=== PATIENT | male | born 1945 | race Caucasian/White ===

== ENCOUNTER 2017-03-22 05:32 | Inpatient (IN) | payer OTHER ==
[2017-03-20 11:06] LABS: HEMATOCRIT 37.4 % (42.0-52.0); HEMOGLOBIN 12.1 gm/dL (14.0-18.0); MCH 29.7 pg (26.0-34.0); MCHC 32.4 g/dL (28.0-37.0); MCV 91.7 fL (80.0-100.0); RBC 4.08 mil/uL (4.50-6.00); RDW 18.9 % (10.5-14.5)
[2017-03-20 11:11] LABS: URINE BILIRUBIN NEGATIVE (Negative); URINE BLOOD NEGATIVE (Negative); URINE COLOR YELLOW; URINE GLUCOSE-RANDOM* NEGATIVE (Negative); URINE KETONES TRACE (Negative); URINE NITRITE NEGATIVE (Negative); URINE PROTEIN (DIPSTICK) TRACE (Negative); URINE SPECIFIC GRAVITY >= 1.030 (1.003-1.035)
[2017-03-20 11:20] LABS: ALBUMIN 3.2 g/dL (3.4-5.0); CALCIUM 9.3 mg/dL (8.5-10.1); CREATININE 1.1 mg/dL (0.7-1.3); POTASSIUM 4.6 mmol/L (3.5-5.1); TOTAL BILIRUBIN 0.7 mg/dL (<0.1-1.0); TOTAL PROTEIN 6.8 g/dL (6.4-8.2)
[2017-03-20 11:25] LABS: APTT 24.9 Seconds (24.5-32.8); INR 1.1; PROTIME 11.5 Seconds (9.3-11.4)
[~2017-03-22] VITALS: Ht 175.3 cm; Wt 85.7 kg
--- NOTE | ~2017-03-22 | S ---
[facility] [address] [address] SURGICAL PATH RPT PROCEDURE Name: PHOENIX NEAL Room #: 215-P [facility] IN M.R.#: [id number] Admission: 03/22/17 Date of : 47 Discharge: 03/23/17 Report #: [id number] Path Case #: [id number] PATHOLOGY REPORT COLLECTION DATE: 03/22/2017 RECEIVED DATE: 03/22/2017 SUBMITTING PHYS: Dr. Jones Larsen OTHER PHYS: Dr. Jones White SPECIMEN(S) RECEIVED: A.4R right paratracheal lymph nodes B.3rd specimen, 4R Rt paratracheal node * * * * * * * * * * * * FINAL DIAGNOSIS: A. 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 (See comment). B. "Third specimen, 4R right paratracheal node", incisional biopsy: - Lymph node with LARGE B CELL LYMPHOMA. (See comment). SYNOPTIC CANCER STAGING REPORT SPECIMEN Specimen: Lymph node(s) Procedure: Biopsy Tumor Site: Lymph node(s) Specify Site(s): 4R right paratracheal lymph nodes TUMOR Histologic Type (Based on the 2008 WHO Classification): Mature B-Cell Neoplasms Other: large B cell lymphoma SPECIAL STUDIES Immunophenotyping (Flow Cytometry and / or Immunohistochemistry): Performed, see separate report: flow cytometry [employer] [facility] [id number] COMMENT: Specimens A and B are mostly similar histologically. Sections show fragments of lymph node tissue with effaced raysa architecture. Scattered large atypical lymphoid cells are identified with numerous admixed smaller, slightly atypical lymphoid cells. In specimen B, there is a more diffuse pattern and focal geographic necrosis is identified. Neither a high mitotic rate nor abundant single cell necrosis is identified. No metastatic carcinoma is seen. To confirm the flow cytometry findings and to identify cells in a [facility] [address] [place] [address] SURGICAL PATH RPT PROCEDURE Name: PHOENIX NEAL Room #: 215-P DIS IN M.R.#: [id number] Admission: 03/22/17 Date of : 47 Discharge: 03/23/17 Report #: [id number] Path Case #: [id number] tissue architectural context, properly controlled immunohistochemical stains are performed. Block A1 PAX5 - highlights the numerous large atypical B cells CD3 - highlights numerous admixed smaller T cells CD10 - rare larger cells weakly reactive BCL-6 - highlights numerous large atypical B cells in vague follicles BCL-2 - diffusely reactive CD23 - highlights residual follicular dendritic cell mesh work Cyclin D1 - lacks diffuse nuclear staining MUM-1 - stains only rare scattered smaller cells P67 - proliferative index of approximately 50-60% CD30 - essentially non-reactive CD15 - stains only scattered smaller cells (likely granulocytes) ALK-1 - non-reactive AE1/AE3 - non-reactive Flow cytometric immunophenotypic analysis was performed at [facility]. The diagnosis is "monoclonal B cells detected (29% of total cells) consistent with a mature B cell neoplasm." There are 97.1% lymphocytes. Of the lymphocytes, there are 70% T cells with a CD4/CD8 ratio of 1.2 and no aberrant T cell antigen expression. There are 30% mature B cells that are lambda monotypic and express CD19, moderate to bright CD20, partial CD11c, partial dim CD10 and show no significant co-expression of CD5. The monoclonal B cells include a large cell subset (1.6% of total cells). Flow cytometry shows monotypic B cells (29% of total cells) consistent with a mature B cell lymphoproliferative disorder. Please see separate flow cytometry report from [facility] ([id number]). Overall the diagnosis of both specimens is large B cell lymphoma. Within specimen A, there is a vaguely follicular architecture. Within specimen B, there is a more diffuse architecture. 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 The diffuse large B cell lymphoma would likely be of the germinal center cell subtype. There is no evidence of metastatic carcinoma. Clinical and radiographic correlation is recommended. The case is co-reviewed with Dr. Mali Ayers. The case is discussed preliminarily with Dr. Jones Larsen on 03/26/17 at approximately 12 noon. PATHOLOGIST: Rosina Hagen M.D. REPORT ELECTRONICALLY SIGNED BY: Rosina Hagen M.D. DATE/TIME: 03/27/2017 23:03 * * * * * * * * * * * * GROSS PATHOLOGY: A. Specimen A is received fresh from the OR labeled with the [address] [address] SURGICAL PATH RPT PROCEDURE Name: PHOENIX NEAL Room #: 215-P DIS IN M.R.#: [id number] Admission: 03/22/17 Date of : 47 Discharge: 03/23/17 Report #: [id number] Path Case #: [id number] patient's name, and "R4 right paratracheal lymph nodes" consists of multiple red-barnes fragments of tissue measuring in aggregate of 2.0 x 2.0 x 0.3 cm. Submitted in entirety for frozen section as FSA1, and subsequently submitted for permanent sections as A1. Additional specimen is received along with the frozen section tissue in a separate container designated "additional R4 right paratracheal lymph node" and this is submitted for flow cytometric analysis subsequent to the frozen section diagnosis. (IUV:mgr; d/t: 03/22/17) B. The specimen is received in formalin, labeled "Phoenix Goncalves, third specimen, 4R right paratracheal nodes." Received are multiple segments of light barnes lobulated tissue measuring 1.6 x 1.4 x 0.3 cm in aggregate dimensions. The specimen is filtered and submitted entirely in cassette B1. (KAH; 03/23/2017) FROZEN SECTION DIAGNOSIS: (You Whiting M.D.) FSA1, R4 right paratracheal lymph nodes, biopsy: - Negative for carcinoma. These findings are discussed with Dr. Jones Larsen in OR7 at [facility], and a written report is placed in the patient's chart. (IUV:mgr; d/t: 03/22/17) Testing performed by [facility] at [facility] [address] [place] [address] CLINICAL HISTORY: History of enlarged mediastinal lymph node, now undergoing mediastinoscopy. INITIAL CPT CODE(S): A; 97662, 48692, 31916, 59808, 20751, 80562, 88462, 49395, 92085, 06331, 35384, 74824, 45791, 71440, 52653 B; 19605 Professional services performed by [facility] at [facility] [address], [place] [address] Technical services performed by [facility] at [address] [place] [address], [address], [place] [address]. [facility] [address] [place] [address] SURGICAL PATH RPT PROCEDURE Name: PHOENIX NEAL Room #: 215-P [facility] IN R.#: [id number] Admission: 03/22/17 Date of : 47 Discharge: 03/23/17 Report #: [id number] Path Case #: [id number] [place] [address] PHONE: [phone] DIRECTOR: Brown Fink M.D. * * * END OF REPORT * * *
--- NOTE | ~2017-03-22 | O ---
[facility] [place] [address] [place] [address] OPERATIVE REPORT Name: JOSELILLIAM KILLIAN Abhishek Room #: 215-P [facility] IN M.R.#: [id number] Admission: 03/22/17 Attend Phys: Jones Larsen MD Discharge: 03/23/17 Date of : 47 Report #: [id number] THIS REPORT FOR: //name// CC: Jones Larsen DATE OF SERVICE: 03/22/2017 PREOPERATIVE DIAGNOSIS: Mediastinal adenopathy. POSTOPERATIVE DIAGNOSIS: Mediastinal adenopathy. OPERATION: Bronchoscopy and mediastinoscopy. SURGEON: Jones Larsen MD ANESTHESIA: General. INDICATIONS: The patient is a 71-year-old with mediastinal adenopathy, seen for Dr. Miguel Ángel Issa. The patient is from [facility]. He has had generalized fatigue and weakness, but no specific history fever or chills. FINDINGS AND TECHNIQUE: After general anesthesia was established, flexible diagnostic bronchoscopy was performed. No endobronchial lesions were noted. A low collar incision was made. Pretracheal space was entered and the mediastinoscope was passed. Enlarged lymph nodes in the level 4 region, particularly on the right side were sampled, these were firm, white, somewhat friable, not vascular blocks of tissue. Generous sampled were submitted for pathology. Frozen section revealed lymphatic material, but no specific pathologic diagnosis. The pathologist opined that sufficient material was present for flow cytometry and eventual diagnosis. Hemostasis was ascertained. The wound was closed in layers. The patient was taken to the recovery area in good condition having tolerated the procedure well. All counts reported as correct. <ELECTRONICALLY SIGNED> By: Jones Larsen MD 04/07/17 0933 1648 1750 Jones Larsen MD /nt
--- NOTE | ~2017-03-22 | H ---
[facility] [address] [place] [address] [place] [address] HISTORY AND PHYSICAL Name: LILLIAM NEAL Room #: 215-P [facility] IN M.R.#: [id number] Admission: 03/22/17 Attend Phys: Jones Larsen MD Discharge: 03/23/17 Date of : 47 Report #: [id number] THIS REPORT FOR: //name// For History and Physical, please see office documentation/handwritten note in the patient's medical record. <ELECTRONICALLY SIGNED> By: Jones Larsen MD 04/07/17 0933 1554 Jones Larsen MD /
--- NOTE | ~2017-03-22 | EKG ---
[facility] [address] [place] [address] ELECTROCARDIOGRAM REPORT Name: LILLIAM NEAL Room #: 215-P ADM IN M.R.#: [id number] Admission: 03/22/17 Attend Phys: Jones Larsen MD Discharge: Date of : 47 Report #: [id number] THIS REPORT FOR: //name// [facility] Test Date: 2017-03-22 Test Time: 10:45:05 Pat Name: LILLIAM NEAL Department: Room: [facility] Gender: M Belly Roller: Teresita CHRISTIAN : 1945 Requested By: Jones Larsen Order Number: [id number] MD: Serge Perez Measurements Intervals [place] Rate: 61 P: 0 NM: 234 QRS: -88 QRSD: 176 T: 96 QT: 479 QTc: 483 Interpretive Statements Ventricular-paced complexes No further analysis attempted due to paced rhythm Compared to ECG 06/14/2015 07:48:24 No significant changes Electronically Signed On 03-23-2017 8:21:21 CDT by Serge Perez [email or web address] <ELECTRONICALLY SIGNED> By: Serge Perez MD, [facility] 03/23/17 0821 1045 1045 Serge Perez MD, [facility] /EPI
[~2017-03-22 05:32] MED LIST: ADVAIR HFA 230M12 GM INH; ASPIR 8181 MG PO; ATORVASTATIN CA40 MG PO; CENTRUM SILVER1 EAC4 PO; ELIQUIS5 MG PO; GLUCOPHAGE XR750 MG PO; HYDROCODONE-AP1 EAC6 PO; LEVAQUIN 500 M500 M1 PO; LEVOTHYROXIN0.125 M1 PO; LIPITOR10 MG PO; METFORMIN HCL500 MG PO; NORVASC5 MG PO; NOVOLIN 70100 UNIT/5 SUBQ; NOVOLOG MI100 UNIT/M SUBQ; PREDNISONE 10 M10 MG PO; PRINIVIL20 MG PO; TOPROL XL50 MG; TRAMADOL 50 MG50 MG PO; TYLENOL325 MG PO; VENTOLIN HFA 1818 GM INH
[2017-03-22 07:00] VITALS: BP 143/72
[2017-03-22 10:41] LABS: ABG SAMPLE TYPE ARTERIAL; BE(vivo) -5.3 mmol/L (-2 to +3); HCO3 19.2 mmol/L (22.0-26.0); LACTATE 1.91 mmol/L (0.5-2.0); O2(CT) 16.4 mL/dL (15.0-23.0); O2Hb 96.8 % (92.0-98.0); PCO2 34.1 mmHg (35.0-45.0); PO2 124.2 mmHg (80.0-100.0); pH 7.369 (7.360-7.450); sO2 98.4 % (92.0-98.0); tCO2 20.3 mmol/L (24.0-30.0)
[2017-03-22 10:42] LABS: STICK SITE LINE; TIDAL VOLUME 600 ml
[2017-03-22 11:07] LABS: HEMATOCRIT 32.6 % (42.0-52.0); HEMOGLOBIN 10.7 gm/dL (14.0-18.0); MCH 30.3 pg (26.0-34.0); MCHC 32.9 g/dL (28.0-37.0); RBC 3.55 mil/uL (4.50-6.00); RDW 18.9 % (10.5-14.5); WBC 15.1 thou/uL (4.0-11.0)
[2017-03-22 11:17] LABS: CALCIUM 7.5 mg/dL (8.5-10.1); CREATININE 0.9 mg/dL (0.7-1.3); POTASSIUM 4.2 mmol/L (3.5-5.1)
[2017-03-22 11:32] LABS: ALBUMIN 2.5 g/dL (3.4-5.0); CK-MB MASS 2.1 ng/mL (<0.5-3.6); TOTAL BILIRUBIN 0.6 mg/dL (<0.1-1.0); TOTAL PROTEIN 5.4 g/dL (6.4-8.2); TROPONIN-I 0.06 ng/mL (<0.04-0.07)
[2017-03-22 12:50] VITALS: BP 100/51
[2017-03-22 16:00] VITALS: BP 120/56
[2017-03-22 19:30] VITALS: BP 131/66
[2017-03-22 23:32] VITALS: BP 98/46
[2017-03-23 02:48] VITALS: BP 130/58
[2017-03-23 03:51] LABS: CALCIUM 8.5 mg/dL (8.5-10.1); POTASSIUM 4.4 mmol/L (3.5-5.1)
[2017-03-23 04:20] LABS: HEMATOCRIT 34.5 % (42.0-52.0); HEMOGLOBIN 11.2 gm/dL (14.0-18.0); MCHC 32.4 g/dL (28.0-37.0); MCV 92.6 fL (80.0-100.0); RBC 3.72 mil/uL (4.50-6.00); WBC 12.3 thou/uL (4.0-11.0)
[2017-03-23 07:45] VITALS: BP 140/60
[2017-03-23 10:49] VITALS: BP 140/60
[2017-03-23 10:50] VITALS: BP 140/60
[2017-03-23 10:54] VITALS: BP 140/60
== END 2017-03-23 11:38 | disposition home or self-care (01) | DRG 804 ==
LOC: TBA 05:32 → OR 05:32 → TBA 05:34 → OR 08:25 → 2N 12:50 → OR 13:17 → 2N 03-23 11:38 → OR 03-23 13:34
PROVIDERS: Surgery Vascular Surgery
PROC: 0BJ08ZZ Inspection of Tracheobronchial Tree, Via Natural or Artificial Opening Endoscopic (ICD-10-PCS; principal; 2017-03-22)
PROC: 07B74ZX Excision of Thorax Lymphatic, Percutaneous Endoscopic Approach, Diagnostic (ICD-10-PCS; principal; 2017-03-22)
PROC: 0BH17EZ Insertion of Endotracheal Airway into Trachea, Via Natural or Artificial Opening (ICD-10-PCS; 2017-03-22)
PROC: 5A1935Z Respiratory Ventilation, Less than 24 Consecutive Hours (ICD-10-PCS; 2017-03-22)
DX: R59.0 Localized enlarged lymph nodes (principal); R59.1 Generalized enlarged lymph nodes; Z79.82 Long term (current) use of aspirin; Z79.899 Other long term (current) drug therapy; E11.9 Type 2 diabetes mellitus without complications; I10 Essential (primary) hypertension; I48.91 Unspecified atrial fibrillation; E78.5 Hyperlipidemia, unspecified
CPT/HCPCS: 10081; 50010; 50101; 50386; 50403; 50607; 54118; 56524; 56526; 62110; 62900; 65020; 65043; 70005